=== PATIENT | female | born 1980 | race Caucasian/White ===

== ENCOUNTER 2023-01-23 16:09 | Emergency (ER) | payer OTHER, SELFPAY ==
--- NOTE | 2023-01-23 16:14 | ED.SKABFB ---
HPI - Skin/Abscess/Foreign Bdy General Chief complaint: Skin/Abscess/Foreign Body Stated complaint: blister on left wrist Source: patient and RN notes reviewed History of Present Illness HPI narrative: 42-year-old female presents to the [facility] complaining of a blister on her left wrist. Patient states that she has is singular blister on her left wrist that developed yesterday. Patient states over the last few days she has been working in her garden that does have poison suman and was concerned that it may be poison suman but also states that she has a history of chickenpox and was worried that the lesion was shingles. Patient denies any pain to the lesion, denies any fevers, chills, body aches. Patient denies any berry to the area. Patient denies any drainage to wound or injury to wrist. Related Data Home Medications Medication Instructions Recorded Confirmed norethindrone 1.5 mg-ethinyl 1 tablet PO DAILY 01/23/23 01/23/23 estradiol 30 mcg(21)/iron 75 mg(7) tablet (Junel FE 1.5/30 (28)) polyethylene glycol 3350 17 17 g PO DAILY 01/23/23 01/23/23 gram/dose oral powder (Miralax) Allergies Allergy/AdvReac Type Severity Reaction Status Date / Time No Known Allergies Allergy Verified 01/23/23 16:27 Review of Systems Review of Systems: CONSTITUTIONAL: Denies fever, chills, or sweats. EYES: Denies visual changes, redness, or discharge. ENT: Denies otalgia and sore throat CARDIOVASCULAR: Denies chest pain, palpitations, or edema. RESPIRATORY: Denies cough or dyspnea. GASTROINTESTINAL: Denies abdominal pain, nausea, vomiting, or diarrhea. GENITOURINARY: Denies dysuria or hematuria. SKIN: Positive for blister to left wrist. MUSCULOSKELETAL: Denies back pain, joint pain, or myalgia. NEUROLOGIC: Denies headache, numbness, or weakness. Pertinent positives per HPI. PMFSH Comments At the time of my signature, I reviewed and agree with the nursing past medical, surgical, social, and family history. There is no relevant family history pertinent to the patient complaint. Exam Narrative: GENERAL: This is a well-nourished, well-developed patient, in no apparent distress. HEAD: normocephalic, atraumatic. EYES: Sclera clear/white. Vision is grossly intact. EARS: External ears normal, auditory canals clear and without drainage, TMs normal without perforation. Hearing grossly intact. NOSE: External nose normal with no obvious nasal discharge, nares without redness, no rhinorrhea. THROAT: Mucous membranes moist, posterior pharynx clear. NECK: Neck supple, non-tender without lymphadenopathy, masses or thyromegaly. CARDIOVASCULAR: Regular rate and rhythm without murmurs, gallops, or rubs. RESPIRATORY: Clear to auscultation. Breath sounds equal bilaterally. No wheezes, rales, or rhonchi. GASTROINTESTINAL: Abdomen soft, non-tender, nondistended. Bowel sounds are active. No hepato-splenomegaly, or palpable masses. No guarding. SKIN: There is a singular circular fluid filled vesicle to the left radial wrist. No drainage is present, no surrounding, cellulitis no erythema. NEURO: awake, alert, and oriented to person, place and time. There were no obvious focal neurologic abnormalities. EXTREMITIES: No clubbing, cyanosis, or edema. No joint tenderness, effusion, or edema noted. BACK: Nontender without deformity or crepitus. No flank tenderness. Course Course Level of Care: Express Care Visit Vital Signs Vital signs: Vital Signs Temperature 98.5 F 01/23/23 16:16 Pulse Rate 88 01/23/23 16:16 Respiratory Rate 16 01/23/23 16:16 Blood Pressure 144/71 H 01/23/23 16:16 Pulse Oximetry 100 01/23/23 16:16 Oxygen Delivery Room Air 01/23/23 16:16 Temperature 98.5 F 01/23/23 16:16 Pulse Rate 88 01/23/23 16:16 Respiratory Rate 16 01/23/23 16:16 Blood Pressure 144/71 H 01/23/23 16:16 Pulse Oximetry 100 01/23/23 16:16 Oxygen Delivery Room Air 01/23/23 16:16 Reviewed MDM - Skin
[2023-01-23 16:16] VITALS: BP 144/71; PULSE 88; RESP 16; TEMP 36.9; O2SAT 100
== END 2023-01-23 17:05 | disposition home or self-care (01) ==
PROVIDERS: Emergency Provider Nurse Practitioner Family
DX: R21 Rash and other nonspecific skin eruption (principal)
CPT/HCPCS: 99202; G0463